=== PATIENT | male | born 1960 | race Caucasian/White ===

== ENCOUNTER 2018-05-25 08:02 | Day surgery (SDC) | payer OTHER ==
[2018-05-25] MEDS ORDERED: BUPIVACAINE 0.5% 30 ML SDV ONE (08:17)
--- NOTE | 2018-05-25 08:21 | PDANEPAE ---
ANE History of Present Illness port access for chemotherapy ANE Past Medical History - Cardiovascular History Hx Hypertension: No Hx Arrhythmias: No Hx Chest Pain: No Hx Coronary Artery / Peripheral Vascular Disease: No Hx CHF / Valvular Disease: No Hx Palpitations: No - Pulmonary History Hx COPD: No Hx Asthma/Reactive Airway Disease: No Hx Recent Upper Respiratory Infection: No Hx Oxygen in Use at Home: No - Neurologic History Hx Cerebrovascular Accident: No Hx Seizures: No Hx Dementia: No - Endocrine History Hx Diabetes: No Hypothyroid: No Hyperthyroid: No - Renal History Hx Renal Disorders: No - Liver History Hx Hepatic Disorders: No - Neurological & Psychiatric Hx Hx Neurological and Psychiatric Disorders: No - Cancer History Hx Cancer: Yes Cancer History Comment: Here for port to receive chemotherapy for non-hodgekins disease - GI History GERD: no Hx Gastrointestinal Disorders: No ANE Review of Systems Review of Systems:
[2018-05-25] MEDS ORDERED: MIDAZOLAM 2 MG/2 ML VIAL IVP ONE (08:23)
[2018-05-25] MEDS ORDERED: LR 1,000 ML IV ONE (08:31)
--- NOTE | 2018-05-25 08:46 | PDHPUP ---
History & Physical Update H&P update statement: This history and physical update is based on an assessment of the patient which was completed after admission or registration (within 24 hours), but prior to the surgery/procedure. H&P update: H&P reviewed & patient examined, no change in patient's condition since H&P completed
[2018-05-25] MEDS ORDERED: ONDANSETRON 4 MG/2 ML VIAL ONE (08:48)
[2018-05-25] MEDS ORDERED: DEXAMETHASONE 4 MG/ML VIAL ONE (08:48)
[2018-05-25] MEDS ORDERED: LIDOCAINE 2% 100 MG/5 ML SYR ONE (08:48)
[2018-05-25] MEDS ORDERED: PROPOFOL 200 MG/20 ML VIAL ONE ×2 (08:49→09:04)
[2018-05-25] MEDS ORDERED: fentaNYL 100 MCG/2 ML INJ ONE (08:49)
--- NOTE | 2018-05-25 09:14 | PDANEPAE ---
ANE History of Present Illness here for port placement for chemotherapy for non-hodgekins lymphoma ANE Past Medical History - Cardiovascular History Hx Hypertension: No Hx Arrhythmias: No Hx Chest Pain: No Hx Coronary Artery / Peripheral Vascular Disease: No Hx CHF / Valvular Disease: No Hx Palpitations: No - Pulmonary History Hx COPD: No Hx Asthma/Reactive Airway Disease: No Hx Recent Upper Respiratory Infection: No Hx Oxygen in Use at Home: No Hx Sleep Apnea: Yes - Neurologic History Hx Cerebrovascular Accident: No Hx Seizures: No Hx Dementia: No - Endocrine History Hx Diabetes: No Hypothyroid: No Hyperthyroid: No - Renal History Hx Renal Disorders: No - Liver History Hx Hepatic Disorders: No - Neurological & Psychiatric Hx Hx Neurological and Psychiatric Disorders: No - Cancer History Hx Cancer: Yes Cancer History Comment: Here for port to receive chemotherapy for non-hodgekins disease - GI History GERD: no Hx Gastrointestinal Disorders: No ANE Review of Systems Review of Systems: ANE Patient History - Allergies Allergies/Adverse Reactions: epinephrine Allergy (Verified 05/25/18 08:21) - Home Medications Home Medications: NK [No Known Home Meds] 05/25/18 [Last Taken Unknown] - NPO status NPO Since - Liquids (Date): 05/24/18 NPO Since - Liquids (Time): 23:00 NPO Since - Solids (Date): 05/24/18 NPO Since - Solids (Time): 23:00 - Smoking Hx Smoking Status: Never smoked ANE Labs/Vital Signs - Vital Signs Blood Pressure: 122/73 Heart Rate: 86 Respiratory Rate: 13 O2 Sat (%): 94 Height: 187.96 cm Weight: 102.058 kg ANE Physical Exam - Airway Neck exam: FROM Mallampati Score: Class 1 Mouth exam: normal dental/mouth exam - Pulmonary Pulmonary: no respiratory distress, no rales or rhonchi - Cardiovascular Cardiovascular: regular rate and rhythym, no murmur, rub, or gallop - ASA Status ASA Status: II ANE Anesthesia Plan Anesthesia Plan: GA w LMA Total IV Anesthesia: No
[2018-05-25] MEDS ORDERED: MEPERIDINE 25 MG/0.5 ML AMP IVP PRN (09:39)
[2018-05-25] MEDS ORDERED: NALOXONE HCL 0.4 MG/ML INJ IVP PRN (09:39)
[2018-05-25] MEDS ORDERED: HYDROCODONE/APAP 5/325 TAB PO PRN (09:39)
[2018-05-25] MEDS ORDERED: LR 500 ML IV PRN (09:39)
[2018-05-25] MEDS ORDERED: fentaNYL 100 MCG/2 ML INJ IVP PRN (09:39)
[2018-05-25] MEDS ORDERED: HYDROmorphONE/DILAUDID 2 MG/ML INJ IVP PRN (09:39)
[2018-05-25] MEDS ORDERED: ONDANSETRON 4 MG/2 ML VIAL IVP PRN (09:39)
--- NOTE | 2018-05-25 09:49 | POSTANESTH ---
Post Anesthetic Evaluation Cardiovascular Status: Normal, Stable Respiratory Status: Normal, Stable Level of Consciousness/Mental Status: Can Participate in Eval, Moderately Sleepy Pain Control: Adequate, Prn Tx Ordered Nausea/Vomiting Control: Adequate, Prn Tx Ordered Complications Possibly Related to Anesthesia: None Noted
--- NOTE | 2018-05-25 10:07 | POSTOPPROG ---
Post Op Note Date of Operation: 05/25/18 Surgeon: Alberto Peralta Anesthesiologist: NATHEN Anesthesia: GET(General Endotracheal) Pre-op Diagnosis: LYMPHOMA Post-op Diagnosis: SAME Indication: CHEMO ACCESS Procedure: LEFT SUBCLAVIAN PORT WITH FLOURO Findings: GOOD POSITION AND FLOW Inf/Abcess present in the surg proc area at time of surgery?: No Depth: Deep Incisional (Fascial) EBL: Minimal Complications: 0
[2018-05-25 11:27] VITALS: BP 105/69
--- NOTE | 2018-05-26 10:20 | GOP ---
[f rep st] OPERATIVE REPORT DATE OF OPERATION: 05/25/2018 SURGEON: Alberto Peralta MD PREOPERATIVE DIAGNOSIS: Lymphoma. POSTOPERATIVE DIAGNOSIS: Lymphoma. PROCEDURE PERFORMED: Left subclavian port placement with fluoroscopic guidance. FINDINGS: Patient was found to have good position and good flow of the port. DESCRIPTION OF PROCEDURE: Patient to the operating room where he received a satisfactory general end otracheal anesthesia by Dr. Reeves. He was placed in supine position, prepped and draped in usual dwain rile fashion, and then placed in Trendelenburg. Using 0.5% Marcaine local infiltration, a single sti ck was made in the left subclavian vein. Guidewire was introduced, and position was confirmed with f luoroscopy. A subcu pocket was made in the 2nd intercostal space. Port tubing was passed from the p ocket to the subclavian insertion site, trimmed to the appropriate length using fluoroscopic guidance , then introduced through the introducer sheath and dilator system into the right atrium. Good backf low was achieved. The catheter was flushed with heparin and saline. Port was secured to the fascia with 3-0 Vicryl. The pocket was closed with 3-0 Vicryl for the subcu, 4-0 prolene subcuticular stitc h for the skin. The entrance site was closed with Prolene mattress suture. He tolerated procedure w ell, was taken to the recovery room in good condition. There were no complications. /[id number]/MODL
== END 2018-05-25 11:28 | disposition home or self-care (01) ==
LOC: FSGY 08:02
PROVIDERS: ATTEND Surgery
PROC: 02HV33Z Insertion of Infusion Device into Superior Vena Cava, Percutaneous Approach (ICD-10-PCS; principal; 2018-05-25 09:45)
PROC: B5181ZA Fluoroscopy of Superior Vena Cava using Low Osmolar Contrast, Guidance (ICD-10-PCS; principal; 2018-05-25 09:45)
PROC: 0JH60XZ Insertion of Tunneled Vascular Access Device into Chest Subcutaneous Tissue and Fascia, Open Approach (ICD-10-PCS; principal; 2018-05-25 09:45)
DX: C85.90 Non-Hodgkin lymphoma, unspecified, unspecified site (principal)
CPT/HCPCS: C1788; J1100; J1642; J1644; J2001; J2250; J2405; J2704; J3010